=== PATIENT | female | born 1990 | race Caucasian/White ===

== ENCOUNTER 2017-10-18 12:00 | Inpatient (IN) | payer SELFPAY, OTHER ==
[2017-10-18] MEDS: SOD CHLORIDE 0.9% 1,000 ML IV ×2 (15:18→17:23)
[2017-10-18] MEDS: ONDANSETRON 4 MG INJ IV (15:18)
[2017-10-18] MEDS: morphine 4 MG/ML VIAL IV ×2 (15:18→21:09)
[2017-10-18 16:26] LABS: ADD MAN DIFF? NO
[2017-10-18 16:32] LABS: BASOPHILS % 0.1 % (0.0-2.0); HEMATOCRIT 45.8 % (37.0-47.0); LYMPHOCYTES # 1.5 10^3/ul (0.8-2.9); LYMPHOCYTES % 9.4 % (15.0-51.0); MEAN CORPUSCULAR HEMOGLOBIN 27.7 pg (29.0-33.0); MEAN CORPUSCULAR HGB CONC 32.8 g/dl (32.0-37.0); MEAN CORPUSCULAR VOLUME 84.5 fl (82.0-101.0); MEAN PLATELET VOLUME 9.6 fl (7.4-10.4); MONOCYTE # 0.5 10^3/ul (0.3-0.9); MONOCYTES % 3.4 % (0.0-11.0); NEUTROPHIL # 13.6 10^3/ul (1.6-7.5); NEUTROPHILS % 86.7 % (39.0-77.0); PLATELET COUNT 340 10^3/UL (140-415); RED BLOOD COUNT 5.42 10^6/ul (4.20-5.40); RED CELL DISTRIBUTION WIDTH 13.4 % (11.5-14.5)
[2017-10-18 16:32] LABS: WHITE BLOOD COUNT 15.7 10^3/ul (4.8-10.8)
[2017-10-18 16:41] LABS: ADD UMIC YES; UR ASCORBIC ACID NEGATIVE (NEGATIVE); UR BACTERIA MODERATE /HPF (NONE SEEN); UR BILIRUBIN (Dip) NEGATIVE (NEGATIVE); UR BLOOD (Dip) NEGATIVE (NEGATIVE); UR CLARITY SLIGHTLY CLOUDY (CLEAR); UR COLOR YELLOW (YELLOW); UR GLUCOSE (Dip) NEGATIVE (NEGATIVE); UR KETONES (Dip) TRACE mg/dL (NEGATIVE); UR LEUKOCYTE ESTERASE (Dip) NEGATIVE Leu/ul (NEGATIVE); UR MUCUS FEW /HPF (NONE SEEN); UR NITRITE (Dip) NEGATIVE (NEGATIVE); UR RBC 0 /HPF (0-5); UR SPECIFIC GRAVITY (Dip) 1.026 (1.003-1.030); UR SQUAMOUS EPITHELIAL CELL FEW /HPF (FEW); UR TOTAL PROTEIN (Dip) 1+ mg/dl (NEGATIVE); UR UROBILINOGEN (Dip) NEGATIVE (NEGATIVE); UR WBC 2 /HPF (0-5)
[2017-10-18 16:50] LABS: INR 0.93; PROTIME 12.6 Sec (11.9-14.9)
[2017-10-18 16:51] LABS: PARTIAL THROMBOPLASTIN TIME 27.5 Sec (25.0-35.0)
[2017-10-18 16:55] LABS: ALANINE AMINOTRANSFERASE 141 IU/L (13-69); ALBUMIN 4.9 g/dl (3.3-4.9); ALBUMIN/GLOBULIN RATIO 1.22; ALKALINE PHOSPHATASE 120 IU/L (42-121); ANION GAP 18 (8-16); ASPARTATE AMINO TRANSFERASE 84 IU/L (15-46); BILIRUBIN,INDIRECT 0.5 mg/dl (0-1.1); BILIRUBIN,TOTAL 0.5 mg/dl (0.2-1.3); BLOOD UREA NITROGEN 10 mg/dl (7-20); CALCIUM 9.6 mg/dl (8.4-10.2); CARBON DIOXIDE 22 mmol/L (21-31); CHLORIDE 105 mmol/L (97-110); CREATININE 0.57 mg/dl (0.44-1.00); GLUCOSE 109 mg/dl (70-220); LIPASE 51 U/L (23-300); POTASSIUM 3.9 mmol/L (3.5-5.1); SODIUM 141 mmol/L (135-144); TOTAL PROTEIN 8.9 g/dl (6.1-8.1)
[2017-10-18] MEDS: CEFTRIAXONE 1 GM/50 ML (PMX) 50 ML IVPB (17:23)
[2017-10-18] MEDS: ACETAMINOPHEN 325 MG TAB PO (17:55)
[2017-10-18] MEDS: metroNIDAZOLE 500 MG/NS (PMX) 100 ML IVPB (18:50)
[2017-10-18] MEDS ORDERED: ONDANSETRON 4 MG INJ IV (19:00)
[2017-10-18] MEDS ORDERED: NACL 0.9% 3 ML SYG IV (19:30)
[2017-10-19 05:53] LABS: ADD MAN DIFF? NO
[2017-10-19 05:54] LABS: BASOPHILS % 0.1 % (0.0-2.0); EOSINOPHILS % 0.2 % (0.0-7.0); HEMATOCRIT 39.5 % (37.0-47.0); HEMOGLOBIN 12.7 g/dl (12.0-16.0); LYMPHOCYTES # 1.6 10^3/ul (0.8-2.9); LYMPHOCYTES % 14.8 % (15.0-51.0); MEAN CORPUSCULAR HEMOGLOBIN 27.8 pg (29.0-33.0); MEAN CORPUSCULAR HGB CONC 32.2 g/dl (32.0-37.0); MEAN CORPUSCULAR VOLUME 86.4 fl (82.0-101.0); MEAN PLATELET VOLUME 9.9 fl (7.4-10.4); MONOCYTE # 0.8 10^3/ul (0.3-0.9); MONOCYTES % 7.1 % (0.0-11.0); NEUTROPHIL # 8.5 10^3/ul (1.6-7.5); NEUTROPHILS % 77.4 % (39.0-77.0); PLATELET COUNT 253 10^3/UL (140-415); RED BLOOD COUNT 4.57 10^6/ul (4.20-5.40); RED CELL DISTRIBUTION WIDTH 13.9 % (11.5-14.5)
[2017-10-19] MEDS: metroNIDAZOLE 500 MG/NS (PMX) 100 ML IVPB ×3 (06:04→22:00)
[2017-10-19] MEDS: SOD CHLORIDE 0.9% 1,000 ML IV ×2 (06:04→22:00)
[2017-10-19 06:20] LABS: INR 1.05; PROTIME 13.8 Sec (11.9-14.9); PT RATIO 1.1
[2017-10-19 06:21] LABS: PARTIAL THROMBOPLASTIN TIME 31.5 Sec (25.0-35.0)
[2017-10-19 06:35] LABS: ALANINE AMINOTRANSFERASE 100 IU/L (13-69); ALBUMIN 3.8 g/dl (3.3-4.9); ALBUMIN/GLOBULIN RATIO 1.11; ALKALINE PHOSPHATASE 74 IU/L (42-121); ANION GAP 11 (8-16); ASPARTATE AMINO TRANSFERASE 44 IU/L (15-46); BILIRUBIN,INDIRECT 1.4 mg/dl (0-1.1); BILIRUBIN,TOTAL 1.4 mg/dl (0.2-1.3); BLOOD UREA NITROGEN 7 mg/dl (7-20); CALCIUM 8.8 mg/dl (8.4-10.2); CARBON DIOXIDE 27 mmol/L (21-31); CHLORIDE 104 mmol/L (97-110); CREATININE 0.64 mg/dl (0.44-1.00); GLUCOSE 104 mg/dl (70-220); SODIUM 138 mmol/L (135-144); TOTAL PROTEIN 7.2 g/dl (6.1-8.1)
[2017-10-19] MEDS: HYDROmorphONE 0.5 MG/0.5 ML SYG IV ×3 (07:52→18:44)
[2017-10-19] MEDS: ACETAMINOPHEN 325 MG TAB PO ×2 (08:44→16:36)
[2017-10-19] MEDS: CEFTRIAXONE 1 GM/50 ML (PMX) 50 ML IVPB (17:41)
[2017-10-20] MEDS: ACETAMINOPHEN 325 MG TAB PO (05:26)
[2017-10-20] MEDS: metroNIDAZOLE 500 MG/NS (PMX) 100 ML IVPB ×2 (05:27→13:04)
[2017-10-20] MEDS: SOD CHLORIDE 0.9% 1,000 ML IV ×2 (07:00→12:57)
[2017-10-20] MEDS: HYDROmorphONE 0.5 MG/0.5 ML SYG IV ×2 (07:42→13:01)
[2017-10-20] MEDS: CEFTRIAXONE 1 GM/50 ML (PMX) 50 ML IVPB (16:18)
[2017-10-20] MEDS ORDERED: MIDAZOLAM 1 MG/ML 2 ML INJ (17:23)
[2017-10-20] MEDS ORDERED: LIDOCAINE 2% (SDV) 5 ML INJ (17:23)
[2017-10-20] MEDS ORDERED: FENTAnyl 50 MCG/ML VIAL (17:26)
[2017-10-20] MEDS ORDERED: DIPHENHYDRAMINE 50 MG INJ IV (17:30)
[2017-10-20] MEDS ORDERED: MEPERIDINE 25 MG INJ IV (17:30)
[2017-10-20] MEDS ORDERED: FENTAnyl 50 MCG/ML VIAL IV ×3 (17:30)
[2017-10-20] MEDS ORDERED: HYDROmorphONE (0.2 MG/ML) 10ML SYG IV ×3 (17:30)
[2017-10-20] MEDS ORDERED: PROCHLORPERAZINE 10 MG INJ IV (17:30)
[2017-10-20] MEDS ORDERED: PHENYLephrine (100 MCG/ML) 5ML SYG (17:35)
[2017-10-20] MEDS ORDERED: ONDANSETRON 4 MG INJ (17:52)
[2017-10-20] MEDS ORDERED: FAMOTIDINE 20 MG INJ (17:52)
[2017-10-20] MEDS ORDERED: DEXAMETHASONE 4 MG/ML 1 ML INJ (17:52)
[2017-10-20] MEDS ORDERED: PROPOFOL 20 ML ×2 (17:53→18:02)
[2017-10-20] MEDS ORDERED: ROCURONIUM 50 MG INJ (18:02)
[2017-10-20] MEDS ORDERED: SUCCINYLCHOLINE CHLORIDE 100 MG/5 ML SYG IV (18:02)
[2017-10-20] MEDS ORDERED: HYDROmorphONE 2 MG/ML SYG (18:07)
[2017-10-20] MEDS: BUPIVACAINE 0.5%/EPI (SDV) 30 ML INJ (19:02)
[2017-10-20] MEDS ORDERED: SUGAMMADEX SODIUM 200 MG/2 ML VIAL IV (19:16)
[2017-10-20] MEDS ORDERED: BISACODYL 10 MG SUPP PR (20:00)
[2017-10-20] MEDS ORDERED: HYDROmorphONE 1 MG/ML SYG IV (20:00)
[2017-10-20] MEDS ORDERED: HYDROmorphONE 0.5 MG/0.5 ML SYG IV (20:00)
[2017-10-20] MEDS ORDERED: DOCUSATE SODIUM 100 MG CAP PO (20:00)
[2017-10-20] MEDS ORDERED: NA PHOSPHATE/BIPHOS 133 ML ENEMA PR (20:00)
[2017-10-20] MEDS: ONDANSETRON 4 MG INJ IV (20:20)
[2017-10-21] MEDS: HYDROCODONE/APAP (5/325) TAB PO ×4 (00:08→15:34)
[2017-10-21 05:22] LABS: ADD MAN DIFF? NO
[2017-10-21 05:29] LABS: BASOPHILS % 0.1 % (0.0-2.0); HEMATOCRIT 36.8 % (37.0-47.0); HEMOGLOBIN 12.1 g/dl (12.0-16.0); LYMPHOCYTES # 0.8 10^3/ul (0.8-2.9); LYMPHOCYTES % 7.4 % (15.0-51.0); MEAN CORPUSCULAR HEMOGLOBIN 28.1 pg (29.0-33.0); MEAN CORPUSCULAR HGB CONC 32.9 g/dl (32.0-37.0); MEAN CORPUSCULAR VOLUME 85.6 fl (82.0-101.0); MEAN PLATELET VOLUME 11.2 fl (7.4-10.4); MONOCYTE # 0.4 10^3/ul (0.3-0.9); MONOCYTES % 3.5 % (0.0-11.0); NEUTROPHILS % 88.6 % (39.0-77.0); PLATELET COUNT 212 10^3/UL (140-415); RED CELL DISTRIBUTION WIDTH 13.4 % (11.5-14.5)
[2017-10-21 05:29] LABS: WHITE BLOOD COUNT 11.3 10^3/ul (4.8-10.8)
[2017-10-21 05:50] LABS: POSITIVE DIFF @See below
[2017-10-21 05:52] LABS: INR 1.12; PARTIAL THROMBOPLASTIN TIME 21.5 Sec (25.0-35.0); PROTIME 14.6 Sec (11.9-14.9); PT RATIO 1.1
[2017-10-21 06:27] LABS: ALANINE AMINOTRANSFERASE 75 IU/L (13-69); ALBUMIN 3.8 g/dl (3.3-4.9); ALBUMIN/GLOBULIN RATIO 1.05; ALKALINE PHOSPHATASE 59 IU/L (42-121); ANION GAP 17 (8-16); ASPARTATE AMINO TRANSFERASE 68 IU/L (15-46); BILIRUBIN,INDIRECT 0.4 mg/dl (0-1.1); BILIRUBIN,TOTAL 0.4 mg/dl (0.2-1.3); BLOOD UREA NITROGEN 7 mg/dl (7-20); CALCIUM 8.5 mg/dl (8.4-10.2); CARBON DIOXIDE 21 mmol/L (21-31); CHLORIDE 106 mmol/L (97-110); CREATININE 0.52 mg/dl (0.44-1.00); GLUCOSE 125 mg/dl (70-220); PHOSPHORUS 2.7 mg/dl (2.5-4.9); POTASSIUM 4.7 mmol/L (3.5-5.1); SODIUM 139 mmol/L (135-144); TOTAL PROTEIN 7.4 g/dl (6.1-8.1)
[2017-10-21 06:31] LABS: B-TYPE NATRIURETIC PEPTIDE 342 PG/ML (0-125)
[2017-10-21] MEDS: FAMOTIDINE 20 MG INJ IV (08:33)
[2017-10-21] MEDS: ENOXAPARIN 40 MG/0.4 ML SYG SC (09:03)
== END 2017-10-21 16:10 | disposition home or self-care (01) | DRG 418 ==
LOC: FTE 12:00 → MS1 18:41
PROC: 0FT44ZZ Resection of Gallbladder, Percutaneous Endoscopic Approach (ICD-10-PCS; principal; 2017-10-20 17:00)
PROC: 0FB14ZX Excision of Right Lobe Liver, Percutaneous Endoscopic Approach, Diagnostic (ICD-10-PCS; 2017-10-20 17:00)
DX: K80.12 Calculus of gallbladder with acute and chronic cholecystitis without obstruction (principal); K82.1 Hydrops of gallbladder; Z68.42 Body mass index [BMI] 45.0-49.9, adult; E66.9 Obesity, unspecified
CPT/HCPCS: 36415; 74181; 76705; 80053; 81001; 83690; 83735; 83880; 84100; 85025; 85610; 85730; 88304; 88307; 88313; 96361; 96365; 96367; 96375; 96376; 99285-25

== ENCOUNTER 2017-11-07 12:52 | Outpatient (CLI) | payer SELFPAY | END 2017-11-07 17:00 | disposition home or self-care (01) | LOC: HPC 17:00 | DX: K75.81 Nonalcoholic steatohepatitis (NASH) (principal) | CPT/HCPCS: G0463 ==